=== PATIENT | female | born 1990 | race Caucasian/White ===

== ENCOUNTER 2021-01-18 07:53 | Emergency (ER) | payer OTHER ==
[~2021-01-18 07:53] MED LIST: ALBUTEROL SULF8.5 GM INH; DELSYM30 MG/5 ML PO; DOC-Q-LACE100 MG PO; FLONASE 0.05% N16 GM; IBUPROFEN600 MG PO; ZANAFLEX4 M1 PO; ZOFRAN4 MG PO
[2021-01-18] MEDS ORDERED: MEDROL DOSEPAK 24 MG PO (08:18)
[2021-01-18] MEDS ORDERED: VISTARIL25 MG PO (08:18)
== END 2021-01-18 08:57 | disposition home or self-care (01) ==
LOC: ER1 07:53
DX: L23.7 Allergic contact dermatitis due to plants, except food (principal); F17.210 Nicotine dependence, cigarettes, uncomplicated; Z90.49 Acquired absence of other specified parts of digestive tract
CPT/HCPCS: 96372; 99282; J1100

== ENCOUNTER 2021-07-14 22:03 | Emergency (ER) | payer SELFPAY ==
[~2021-07-14 22:03] MED LIST changes: +MEDROL DOSEPAK 24 MG PO; +VISTARIL25 MG PO
[2021-07-14] MEDS ORDERED: BENADRYL 25MG C25 MG PO (23:58)
[2021-07-14] MEDS ORDERED: PREDNISONE 50 M50 MG PO (23:58)
[2021-07-14] MEDS ORDERED: PEPCID20 MG PO (23:58)
== END 2021-07-15 01:05 | disposition home or self-care (01) ==
LOC: ER1 22:03
DX: T78.1XXA Other adverse food reactions, not elsewhere classified, initial encounter (principal); H02.845 Edema of left lower eyelid; H02.842 Edema of right lower eyelid; H02.844 Edema of left upper eyelid; X58.XXXA Exposure to other specified factors, initial encounter
CPT/HCPCS: 96374; 96375; 99283; J1200; J2930

== ENCOUNTER 2021-12-23 15:36 | Emergency (ER) | payer OTHER ==
[~2021-12-23 15:36] MED LIST changes: +BENADRYL 25MG C25 MG PO; +PEPCID20 MG PO; +PREDNISONE 50 M50 MG PO
[2021-12-23 18:16] LABS: HEMOGLOBIN 14.3 gm/dl (12.3-15.3); RED BLOOD COUNT 4.6 M/UL (4.00-5.10); WHITE BLOOD COUNT 4.8 K/UL (4.5-11.0)
[2021-12-23 18:39] LABS: BUN/CREATININE RATIO 16 (0-10)
[2021-12-23] MEDS ORDERED: PAXLOVID CO-PA1 EACH PO (19:43)
[2021-12-23] MEDS ORDERED: IBUPROFEN800 MG PO (19:43)
== END 2021-12-23 20:18 | disposition home or self-care (01) ==
LOC: ER1 15:36
PROVIDERS: Physician Assistant
DX: U07.1 COVID-19 (principal); J18.9 Pneumonia, unspecified organism; J02.9 Acute pharyngitis, unspecified; J45.909 Unspecified asthma, uncomplicated
CPT/HCPCS: 0240U; 71045; 80053; 82550; 82553; 84484; 85025; 85379; 87081; 87880; 93005; 99284

== ENCOUNTER 2022-03-25 22:25 | Emergency (ER) | payer SELFPAY ==
[~2022-03-25 22:25] MED LIST changes: +IBUPROFEN800 MG PO; +PAXLOVID CO-PA1 EACH PO
== END 2022-03-25 22:40 | disposition left against medical advice (07) ==
LOC: ER1 22:25
DX: R51.9 Headache, unspecified (principal)